=== PATIENT | female | born 1990 | race Two or more races ===

== ENCOUNTER → 2017-07-17 | Emergency (ER) | payer OTHER ==
[~2017-07-17] VITALS: Ht 160 cm; Wt 49.0 kg
[~2017-07-17] MED LIST: IMODIUM A-D2 M2 PO; PEPCID40 MG PO; PHENERGAN25 MG PO
== END | disposition home or self-care (01) ==
LOC: ER 20:16
DX: S82.64XA Nondisplaced fracture of lateral malleolus of right fibula, initial encounter for closed fracture (principal); S93.491A Sprain of other ligament of right ankle, initial encounter; X50.3XXA Overexertion from repetitive movements, initial encounter; Y93.14 Activity, water aerobics and water exercise; Y92.89 Other specified places as the place of occurrence of the external cause; Y99.8 Other external cause status

== ENCOUNTER 2017-12-07 21:59 | Emergency (ER) | payer OTHER ==
[~2017-12-07] VITALS: Ht 160 cm; Wt 50.8 kg
[2017-12-08] MEDS ORDERED: DICLOFENAC SODI50 MG PO (07:56)
[2017-12-08] MEDS ORDERED: MEDROLPACK PO (07:56)
== END 2017-12-08 08:34 | disposition home or self-care (01) ==
LOC: ER 21:59
DX: R10.2 Pelvic and perineal pain (principal); N83.02 Follicular cyst of left ovary

== ENCOUNTER 2019-06-19 19:10 | Emergency (ER) | payer OTHER ==
[~2019-06-19] VITALS: Ht 160 cm; Wt 49.9 kg
[~2019-06-19 19:10] MED LIST changes: +DICLOFENAC SODI50 MG PO; +MEDROLPACK PO
[2019-06-19] MEDS ORDERED: DICLOFENAC SODI75 MG PO (20:12)
== END 2019-06-19 20:15 | disposition home or self-care (01) ==
LOC: ER 19:10
DX: M94.0 Chondrocostal junction syndrome [Tietze] (principal)